=== PATIENT | female | born 1955 | race Caucasian/White ===

== ENCOUNTER → 2019-02-03 | Day surgery (SDC) | payer OTHER ==
[~2019-02-03] MED LIST: CALC500T54 PO; CHOL2000 PO; IV RINGERS,LACTATED 1000ML 1,000 ML IV SCH; LEVO50TA PO; LISI1TAB23 PO; PROPOFOL 20 ML IV ONE
[2019-02-03 13:23] VITALS: BP 130/78
== END | disposition home or self-care (01) ==
LOC: ENDOS 11:27
PROVIDERS: ATTEND Internal Medicine Gastroenterology
DX: R19.5 Other fecal abnormalities (principal); K64.0 First degree hemorrhoids; E03.9 Hypothyroidism, unspecified; I11.9 Hypertensive heart disease without heart failure; F15.90 Other stimulant use, unspecified, uncomplicated; Z85.3 Personal history of malignant neoplasm of breast; Z88.0 Allergy status to penicillin; Z88.8 Allergy status to other drugs, medicaments and biological substances; Z72.89 Other problems related to lifestyle; Z98.890 Other specified postprocedural states; Z98.51 Tubal ligation status
CPT/HCPCS: 45378; J2704